=== PATIENT | male | born 1965 | race Caucasian/White ===

== ENCOUNTER 2017-08-23 15:44 | Emergency (ER) | payer OTHER ==
[~2017-08-23] VITALS: Ht 165.1 cm; Wt 90.7 kg
[2017-08-23] MEDS ORDERED: ATOR40TA PO (16:16)
[2017-08-23] MEDS ORDERED: LABE200 PO (16:16)
[2017-08-23] MEDS ORDERED: LISI5 PO (16:16)
[2017-08-23] MEDS ORDERED: LEVSOD50 PO (16:17)
[2017-08-23] MEDS ORDERED: CITA20 PO (16:17)
[2017-08-23] MEDS ORDERED: FEBU40TA (16:17)
[2017-08-23] MEDS ORDERED: ASPI81CH PO (16:17)
[2017-08-23] MEDS ORDERED: HYDCOR2.5C PR (18:05)
[2017-08-23] MEDS ORDERED: Colace100 MG PO (18:05)
== END 2017-08-23 18:24 | disposition home or self-care (01) ==
LOC: ER 15:44
DX: K64.5 Perianal venous thrombosis (principal); Z88.0 Allergy status to penicillin; Z79.899 Other long term (current) drug therapy; Z79.82 Long term (current) use of aspirin; I10 Essential (primary) hypertension
CPT/HCPCS: 46320; 99284